=== PATIENT | female | born 1970 | race Caucasian/White ===

== ENCOUNTER 2022-02-14 12:14 | Day surgery (SDC) | payer OTHER ==
[~2022-02-14 12:14] MED LIST: Tixagevimab 1.5 ML/Cilgavimab 1.5 ML (EUA) IM SCH
[2022-02-14 13:56] VITALS: BP 124/76; TEMP 98.1
== END 2022-02-14 13:57 | disposition home or self-care (01) ==
LOC: ONC/OP 12:14
PROVIDERS: ATTEND Internal Medicine Rheumatology
DX: Z29.8 Encounter for other specified prophylactic measures (principal); Z88.5 Allergy status to narcotic agent; Z88.8 Allergy status to other drugs, medicaments and biological substances; Z91.040 Latex allergy status; Z91.041 Radiographic dye allergy status